=== PATIENT | female | born 1935 | race Caucasian/White ===

== ENCOUNTER 2017-02-22 07:04 | Day surgery (SDC) | payer MEDICARE, OTHER ==
--- NOTE | ~2017-02-22 | EGD ---
EGD REPORT [facility] [address] [address] NAME: ESTER PRETTY : 37 STATUS : [place] [facility] [place] [id number] AGE: 81 ADM/REG DATE : 02/22/17 MR#: [id number] REPORT SERV DATE: 02/22/17 DICTATED BY: XAVI FRY DATE: 02/22/17 REPORT STATUS : Draft TRANSCRIBED BY: [facility] DATE: 02/22/17 Endoscopy Center Patient Name: Ester Pretty Date of : 1935 Attending MD: XAVI FRY MD Procedure Date No Time: 02/22/2017 Procedure: Colonoscopy Indications: Heme positive stool, Iron deficiency anemia secondary to chronic blood loss Referring MD: REBECCA BASURTO Medicines: Propofol per Anesthesia Complications: No immediate complications. Estimated blood loss: None. Procedure: Pre-Anesthesia Assessment: - After reviewing the risks and benefits, the patient was deemed in satisfactory condition to undergo the procedure. - Prior to the procedure, a History and Physical was performed, and patient medications and allergies were reviewed. The patient's tolerance of previous anesthesia was also reviewed. The risks and benefits of the procedure and the sedation options and risks were discussed with the patient. All questions were answered, and informed consent was obtained. Prior Anticoagulants: The patient has taken Coumadin (warfarin), last dose was 5 days prior to procedure. ASA Grade Assessment: III - A patient with severe systemic disease. After reviewing the risks and benefits, the patient was deemed in satisfactory condition to undergo the procedure. After I obtained informed consent, the scope was passed under direct vision. Throughout the procedure, the patient's blood pressure, pulse, and oxygen saturations were monitored continuously. The CF [id number] was introduced through the anus and advanced to the cecum, identified by appendiceal orifice and ileocecal valve. The colonoscopy was somewhat difficult due to significant looping and a tortuous colon. Successful completion of the procedure was aided by straightening and shortening the scope to obtain bowel loop reduction and applying abdominal pressure. The ileocecal valve and appendiceal orifice were photographed. The patient tolerated the procedure well. The quality of the bowel preparation was adequate. The bowel preparation used was polyethylene glycol (PEG). Scope withdrawal time was greater than 8 minutes. EGD REPORT [place] [id number] [facility] [place]. [address] NAME: ESTER PRETTY : [birth year] STATUS : [place] [facility] [place] PAT#: [id number] AGE: 81 ADM/REG DATE : 02/22/17 MR#: [id number] REPORT SERV DATE: 02/22/17 DICTATED BY: XAVI FRY DATE: 02/22/17 REPORT STATUS : Draft TRANSCRIBED BY: [employer] DATE: 02/22/17 Findings: The perianal and digital rectal examinations were normal. Pertinent negatives include normal sphincter tone. Internal hemorrhoids were found during retroflexion and were small and Grade I (internal hemorrhoids that do not prolapse). Multiple small-mouthed diverticula were found in the sigmoid colon and in the descending colon. The exam was otherwise without abnormality. Impression: - Internal hemorrhoids. - Moderate diverticulosis in the sigmoid colon and in the descending colon. - The examination was otherwise normal. Recommendation: - Discharge patient to home (ambulatory). - High fiber diet indefinitely. - Continue present medications. - Resume Coumadin (warfarin) at prior dose tomorrow. - Resume iron. - Repeat colonoscopy will not be performed due to advanced age. - Patient has a contact number available for emergencies. The signs and symptoms of potential delayed complications were discussed with the patient. Return to normal activities tomorrow. Written discharge instructions were provided to the patient. Procedure Code(s): --- Professional --- 99698, Colonoscopy, flexible, proximal to splenic flexure; diagnostic, with or without collection of specimen(s) by brushing or washing, with or without colon decompression (separate procedure) Diagnosis Code(s): --- Professional --- K64.0, First degree hemorrhoids K57.30, Diverticulosis of large intestine without perforation or abscess without bleeding R19.5, Other fecal abnormalities D50.0, Iron deficiency anemia secondary to blood loss (chronic) CPT copyright 2013 [employer]. All rights reserved. The codes documented in this report are preliminary and upon ski tow operator review may be revised to meet current compliance requirements. EGD REPORT [facility] [address] [address] NAME: ESTER PRETTY : 37 STATUS : [place] [facility] [place] PAT#: [id number] AGE: 81 ADM/REG DATE : 02/22/17 MR#: [id number] REPORT SERV DATE: 02/22/17 DICTATED BY: XAVI FYR DATE: 02/22/17 REPORT STATUS : Draft TRANSCRIBED BY: [employer] DATE: 02/22/17 XAVI FRY MD 02/22/2017 9:44 AM This report has been signed electronically. Number of Addenda: 0 Note Initiated On: 02/22/2017 8:52 AM Scope Withdrawal Time 0 hours 8 minutes 44 seconds [address] [id number]
--- NOTE | ~2017-02-22 | EGD ---
EGD REPORT [facility] [address] [address] NAME: ESTER PRETTY : 37 [place] [facility] [place] [id number] AGE: 81 ADM/REG DATE : 02/22/17 MR#: [id number] REPORT SERV DATE: 02/22/17 DICTATED BY: XAVI FRY DATE: 02/22/17 REPORT STATUS : Draft TRANSCRIBED BY: [facility] DATE: 02/22/17 Endoscopy Center Patient Name: Ester Pretty Date of : 1935 Attending MD: XAVI FRY MD Procedure Date No Time: 02/22/2017 Procedure: Upper GI endoscopy Indications: Iron deficiency anemia secondary to chronic blood loss, Heme positive stool Referring MD: REBECCA BASURTO Medicines: Propofol per Anesthesia Complications: No immediate complications. Estimated blood loss: None. Procedure: Pre-Anesthesia Assessment: - After reviewing the risks and benefits, the patient was deemed in satisfactory condition to undergo the procedure. - Prior to the procedure, a History and Physical was performed, and patient medications and allergies were reviewed. The patient's tolerance of previous anesthesia was also reviewed. The risks and benefits of the procedure and the sedation options and risks were discussed with the patient. All questions were answered, and informed consent was obtained. Prior Anticoagulants: The patient has taken no previous anticoagulant or antiplatelet agents. ASA Grade Assessment: III - A patient with severe systemic disease. After reviewing the risks and benefits, the patient was deemed in satisfactory condition to undergo the procedure. After obtaining informed consent, the endoscope was passed under direct vision. Throughout the procedure, the patient's blood pressure, pulse, and oxygen saturations were monitored continuously. The GIF [id number] was introduced through the mouth, and advanced to the jejunum. The upper GI endoscopy was accomplished without difficulty. The patient tolerated the procedure well. Findings: The examined esophagus was normal. 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 Coagulation for bleeding prevention using argon plasma at 1 liter/minute and 20 victor was successful. Estimated blood loss: none. The examined duodenum was normal. Biopsies were taken with a cold forceps for histology. Estimated blood loss: none. EGD REPORT [address] [address] NAME: ESTER PRETTY : 37 [place] [facility] [place] [id number] AGE: 81 ADM/REG DATE : 02/22/17 MR#: [id number] REPORT SERV DATE: 02/22/17 DICTATED BY: XAVI FRY DATE: 02/22/17 REPORT STATUS : Draft TRANSCRIBED BY: [employer] DATE: 02/22/17 Impression: - Normal esophagus. 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 - Normal examined duodenum. Biopsied. Recommendation: - Discharge patient to home (ambulatory). - Return to previous diet. - Continue present medications. - Await pathology results. - Perform a colonoscopy today. - Patient has a contact number available for emergencies. The signs and symptoms of potential delayed complications were discussed with the patient. Return to normal activities tomorrow. Written discharge instructions were provided to the patient. Procedure Code(s): --- Professional --- 20959, 59, Esophagogastroduodenoscopy, flexible, transoral; with control of bleeding, any method 07099, Esophagogastroduodenoscopy, flexible, transoral; with biopsy, single or multiple Diagnosis Code(s): --- Professional --- K31.819, Angiodysplasia of stomach and duodenum without bleeding D50.0, Iron deficiency anemia secondary to blood loss (chronic) R19.5, Other fecal abnormalities CPT copyright 2013 [employer]. All rights reserved. The codes documented in this report are preliminary and upon remote medical coder review may be revised to meet current compliance requirements. XAVI FRY MD 02/22/2017 9:18 AM This report has been signed electronically. Number of Addenda: 0 Note Initiated On: 02/22/2017 8:56 AM Scope Withdrawal Time 0 hours 0 minutes 0 seconds [address] [id number]
[~2017-02-22 07:04] MED LIST: ASAB PO; ATEN50 PO; ATENOLOL; CEFT5 PO; DRONED400 PO; FERROUS SULF325 M1 PO; JANTOVEN3 MG PO; LEVOTHYROXIN75 MCG PO; LIPITOR40 PO; LOP25 PO; PRIN2.5 PO; SAL500 PO; SALSALATE; SYN.025B PO; TRAMADOL; ULTRAM50 PO
[2017-02-22 07:27] LABS: INTERNATIONAL NORMAL RATI 1.1 UNITS (-)
[2017-02-22 07:28] LABS: PROTIME (NOT ORD) 14.2 SEC (12.0-14.5)
== END 2017-02-22 23:59 | disposition home or self-care (01) ==
LOC: DMU 07:04
PROVIDERS: Anesthesiology; Internal Medicine Gastroenterology
PROC: 0DJD8ZZ Inspection of Lower Intestinal Tract, Via Natural or Artificial Opening Endoscopic (ICD-10-PCS; principal; 2017-02-22 08:45)
PROC: 0DB98ZZ Excision of Duodenum, Via Natural or Artificial Opening Endoscopic (ICD-10-PCS; 2017-02-22 08:45)
PROC: 0W3P8ZZ Control Bleeding in Gastrointestinal Tract, Via Natural or Artificial Opening Endoscopic (ICD-10-PCS; 2017-02-22 08:45)
DX: K64.0 First degree hemorrhoids (principal); K57.30 Diverticulosis of large intestine without perforation or abscess without bleeding; R19.5 Other fecal abnormalities; D50.0 Iron deficiency anemia secondary to blood loss (chronic); K31.819 Angiodysplasia of stomach and duodenum without bleeding; I10 Essential (primary) hypertension; Z90.89 Acquired absence of other organs; G89.29 Other chronic pain; I48.91 Unspecified atrial fibrillation; I25.10 Atherosclerotic heart disease of native coronary artery without angina pectoris; M54.2 Cervicalgia; G43.909 Migraine, unspecified, not intractable, without status migrainosus; Z90.49 Acquired absence of other specified parts of digestive tract; Z98.890 Other specified postprocedural states; Z96.641 Presence of right artificial hip joint; Z96.651 Presence of right artificial knee joint; Z88.2 Allergy status to sulfonamides; Z95.1 Presence of aortocoronary bypass graft; Z79.82 Long term (current) use of aspirin; Z79.899 Other long term (current) drug therapy; Z79.01 Long term (current) use of anticoagulants
CPT/HCPCS: 85610; 88305